=== PATIENT | male | born 1945 | race Caucasian/White ===

== ENCOUNTER → 2020-07-11 | Day surgery (SDC) | payer OTHER ==
[~2020-07-11] MED LIST: ALLEGRA ALLERG180 MG PO; ASMANEX HFA13 G1 INH; AZELASTINE205.5 MCG/; COLESTIPOL HCL1 GM PO; MELOXICAM15 MG PO; NASONEX NAS120 PUFFS; NORCO 5-325 TA1 EACH PO; ONDANSETRON ODT8 MG PO; PROTONIX 40MG T40 MG PO; SINGULAIR10 MG PO; VITAMIN B-121000 MC1 PO
[2020-07-11 07:33] LABS: HCT 41.7 % (42.0-52.0); HGB 14.9 g/dl (13.2-18.0); MCH 34.4 pg (25.0-31.0); MCHC 35.7 g/dL (32.0-36.0); MCV 96.3 fL (78.0-100.0); MPV 10.5 fL (6.0-9.5); RBC 4.33 M/uL (4.70-6.00); RDW 12.5 % (11.5-14.0); WBC 7.8 K/uL (4.0-10.5)
[2020-07-11 07:48] LABS: ALBUMIN 4.2 g/dL (3.4-5.0); BILIRUBIN - TOTAL 0.6 mg/dL (0.2-1.0); CREATININE 0.92 mg/dL (0.67-1.17); GLOBULIN (CALCULATION) 3.5 g/dL; POTASSIUM 4.7 mmol/L (3.5-5.1); TOTAL PROTEIN 7.7 g/dL (6.4-8.2)
== END | disposition home or self-care (01) ==
LOC: FAS 06:44
PROVIDERS: Surgery
DX: K29.50 Unspecified chronic gastritis without bleeding (principal); K21.00 Gastro-esophageal reflux disease with esophagitis, without bleeding; K31.89 Other diseases of stomach and duodenum; F41.9 Anxiety disorder, unspecified; M19.90 Unspecified osteoarthritis, unspecified site; E78.00 Pure hypercholesterolemia, unspecified; Z79.899 Other long term (current) drug therapy
CPT/HCPCS: 36415; 80053; 88305; J2704; J7120

== ENCOUNTER → 2020-07-31 | Day surgery (SDC) | payer OTHER ==
[2020-07-31 09:07] LABS: HCT 38.6 % (42.0-52.0); HGB 13.6 g/dl (13.2-18.0); MCH 33.9 pg (25.0-31.0); MCHC 35.2 g/dL (32.0-36.0); MCV 96.3 fL (78.0-100.0); MPV 10.6 fL (6.0-9.5); RBC 4.01 M/uL (4.70-6.00); RDW 12.5 % (11.5-14.0); WBC 7.6 K/uL (4.0-10.5)
[2020-07-31 09:28] LABS: ALBUMIN 3.8 g/dL (3.4-5.0); BILIRUBIN - TOTAL 0.6 mg/dL (0.2-1.0); BUN/CREAT RATIO (CALC) 8.8 RATIO; CREATININE 0.91 mg/dL (0.67-1.17); GLOBULIN (CALCULATION) 3.1 g/dL; POTASSIUM 4.1 mmol/L (3.5-5.1); TOTAL PROTEIN 6.9 g/dL (6.4-8.2)
== END | disposition home or self-care (01) ==
LOC: FAS 07:36
PROVIDERS: Surgery
DX: K80.10 Calculus of gallbladder with chronic cholecystitis without obstruction (principal); K74.00 Hepatic fibrosis, unspecified; K29.70 Gastritis, unspecified, without bleeding; K20.90 Esophagitis, unspecified without bleeding; E78.00 Pure hypercholesterolemia, unspecified; M19.90 Unspecified osteoarthritis, unspecified site; G43.909 Migraine, unspecified, not intractable, without status migrainosus; F41.9 Anxiety disorder, unspecified; R07.9 Chest pain, unspecified; Z98.890 Other specified postprocedural states; Z20.822 Contact with and (suspected) exposure to COVID-19; Z87.19 Personal history of other diseases of the digestive system; Z80.0 Family history of malignant neoplasm of digestive organs; Z82.49 Family history of ischemic heart disease and other diseases of the circulatory system
CPT/HCPCS: 36415; 74300; 80053; 93005; C1758; J1170; J2250; J2704; J3010; J3490; J7120; Q9967